=== PATIENT | male | born 1995 | race Caucasian/White ===

== ENCOUNTER 2016-07-12 16:29 | Emergency (ER) | payer SELFPAY ==
[~2016-07-12] VITALS: Ht 172.7 cm; Wt 72.6 kg
[2016-07-12 16:37] VITALS: BP 107/72
[2016-07-12] MEDS ORDERED: PRED20TA PO (16:43)
--- NOTE | 2016-07-12 16:44 | PHYS DOC ---
Past Medical History Past Medical History: Other Additional Past Medical Histor: TORN LEFT KNEE MECISCUS Past Surgical History: No Surgical History Alcohol Use: None Drug Use: None Adult General Chief Complaint Chief Complaint: KNEE INJURY [facility] HPI Patient is a 21 year old male presents to the emergency department with chronic left knee pain. He states he generally gets a cortisone injection in the knee and is seeking out in the emergency department. He states that he went to an orthopedic physician but they wanted $300 and he cannot afford out so he reported to the emergency department. He has no new injury, no radiation pain, no loss of function of lower extremity. Review of Systems Review of Systems Constitutional: Denies fever or chills [] Eyes: Denies change in visual acuity, redness, or eye pain [] HENT: Denies nasal congestion or sore throat [] Respiratory: Denies cough or shortness of breath [] Cardiovascular: No additional information not addressed in HPI [] GI: Denies abdominal pain, nausea, vomiting, bloody stools or diarrhea [] : Denies dysuria or hematuria [] Musculoskeletal: Denies back pain or joint pain [] Integument: Denies rash or skin lesions [] Neurologic: Denies headache, focal weakness or sensory changes [] Endocrine: Denies polyuria or polydipsia [] Physical Exam Physical Exam Constitutional: Well developed, well nourished, no acute distress, non-toxic appearance. [] HENT: Normocephalic, atraumatic Neck: Normal range of motion, no tenderness, supple, no stridor. [] Cardiovascular:Heart rate regular rhythm, no murmur [] Lungs & Thorax: Bilateral breath sounds clear to auscultation [] Skin: Warm, dry, no erythema, no rash. [] Back: No tenderness, no CVA tenderness. [] Extremities: No tenderness, no swelling, no erythema, no cyanosis, no clubbing, ROM intact, no edema. Knee exam, no laxity on anterior drawer, negative valgus varus stress test. Neurovascular intact distally. [] Neurologic: Alert and oriented X 3, normal motor function, normal sensory function, no focal deficits noted. [] Psychologic: Affect normal, judgement normal, mood normal. [] EKG EKG [] Radiology/Procedures Radiology/Procedures [] Course & Med Decision Making Course & Med Decision Making Pertinent Labs and Imaging studies reviewed. (See chart for details) [] Dragon Disclaimer Dragon Disclaimer This electronic medical record was generated, in whole or in part, using a voice recognition dictation system. Departure Departure Impression: Primary Impression: Knee pain, chronic Disposition: 01 HOME, SELF-CARE Condition: STABLE Referrals: Physician list provided Patient Instructions: Chronic Pain, Chronic Pain Management Scripts Prednisone (PREDNISONE) 20 Mg Tablet 1 TAB PO DAILY, #5 TAB Prov: LAURA MORENO APRN 07/12/16 LAURA MORENO APRN July 12, 2016 16:44
== END 2016-07-12 16:54 | disposition home or self-care (01) ==
LOC: ER 16:29
DX: M25.562 Pain in left knee (principal)
CPT/HCPCS: 99283